=== PATIENT | female | born 1995 | race Caucasian/White ===

== ENCOUNTER 2017-06-19 10:59 | Emergency (ER) | payer SELFPAY ==
[~2017-06-19] VITALS: Ht 157.5 cm; Wt 65.9 kg
[~2017-06-19 10:59] MED LIST: NO HOME MEDICATIONS; POLYMYXIN B/TRIMETH OD; TUSS PO
[2017-06-19 11:13] VITALS: BP 130/71; TEMP 98.2
[2017-06-19 12:15] LABS: BASO % 0.4 % (0.0-2.0); EOS # 0.1 (0.0-0.7); EOS % 1.1 % (0-4.0); GRAN # 5.4 (1.4-6.5); GRAN % 64.9 % (42.2-75.2); HEMOGLOBIN 13.4 g/dl (12.5-16.0); LYMPH # 2.1 (1.2-3.4); LYMPH % 24.8 % (20.0-51.0); MEAN CELL VOLUME 93 fl (80.0-100.0); MEAN CORPUSCULAR HEMOGLOBIN 31 pg (27.0-31.0); MEAN CORPUSCULAR HGB CONC 34 g/dl (33.0-37.0); MEAN PLATELET VOLUME 11.1 fl (7.4-10.4); MONO # 0.7 (0.1-0.6); MONO % 8.6 % (1.7-9.3); PLATELET COUNT 195 K/mm3 (130-400); RED BLOOD COUNT 4.29 M/mm3 (4.10-5.30); REDCELL DISTRIBUTION WIDTH-CV 13.2 % (11.5-14.5)
[2017-06-19 12:31] LABS: ALANINE AMINOTRANSFERASE 27 U/L (9-52); ALBUMIN 4.3 gm/dL (3.5-5.0); ALKALINE PHOSPHATASE 86 U/L (50-136); ANION GAP 9 mmol/L (7-16); AST,SGOT 24 U/L (15-37); BILIRUBIN,TOTAL 0.7 mg/dL (0.0-1.0); BLOOD UREA NITROGEN 13 mg/dL (7-17); CALCIUM 9.2 mg/dL (8.4-10.2); CARBON DIOXIDE 23 mmol/L (22-30); CHLORIDE 107 mmol/L (98-107); CREATININE, serum 0.78 mg/dL (0.52-1.25); GLUCOSE 90 mg/dL (74-106); POTASSIUM 3.6 mmol/L (3.4-5.0); SODIUM 139 mmol/L (137-145); TOTAL PROTEIN 7.3 gm/dL (6.4-8.2)
[2017-06-19 12:37] LABS: C-REACTIVE PROTEIN < 0.5 mg/dL (0.0-0.9)
[2017-06-19 13:02] LABS: COLLECTION METHOD CLEAN CATCH
[2017-06-19 13:20] LABS: MUCOUS Present /lpf; PH 5 (5-8); URINE APPEARANCE Hazy; URINE BACTERIA Rare /hpf; URINE BILIRUBIN Negative (NEGATIVE); URINE BLOOD 3+ (NEGATIVE); URINE COLOR Yellow; URINE GLUCOSE Negative (NEGATIVE); URINE KETONE 1+ (NEGATIVE); URINE LEUKOCYTE ESTERASE Negative (NEGATIVE); URINE NITRATE Negative (NEGATIVE); URINE PROTEIN(semi-quant) 1+ (NEGATIVE); URINE RBC >50 /hpf; URINE UROBILINOGEN Negative (NEGATIVE)
[2017-06-19] MEDS ORDERED: CEFTIN500 MG PO (13:39)
[2017-06-19 13:46] VITALS: PULSE 74
== END 2017-06-19 13:47 | disposition home or self-care (01) ==
LOC: COL.ER 10:59
PROVIDERS: Family Medicine; Physician Assistant
DX: N39.0 Urinary tract infection, site not specified (principal); F17.200 Nicotine dependence, unspecified, uncomplicated
CPT/HCPCS: J1885; J2405; J7030

== ENCOUNTER 2018-04-04 18:28 | Emergency (ER) | payer SELFPAY ==
[~2018-04-04] VITALS: Ht 157.5 cm; Wt 65.9 kg
[~2018-04-04 18:28] MED LIST changes: +CEFTIN500 MG PO
[2018-04-04 18:37] VITALS: BP 151/72; TEMP 98.3
[2018-04-04] MEDS ORDERED: AMOXICILLIN 8751 TAB PO (20:11)
[2018-04-04 20:58] VITALS: PULSE 90
== END 2018-04-04 20:36 | disposition home or self-care (01) ==
LOC: COL.ER 18:28
DX: K04.7 Periapical abscess without sinus (principal); F17.210 Nicotine dependence, cigarettes, uncomplicated
CPT/HCPCS: J1885

== ENCOUNTER 2018-04-06 18:36 | Emergency (ER) | payer SELFPAY ==
[~2018-04-06] VITALS: Ht 157.5 cm; Wt 65.9 kg
[~2018-04-06 18:36] MED LIST changes: +AMOXICILLIN 8751 TAB PO
[2018-04-06 19:01] VITALS: TEMP 98.9
[2018-04-06 19:36] LABS: BASO % 0.3 % (0.0-2.0); EOS # 0.1 (0.0-0.7); EOS % 0.5 % (0-4.0); GRAN # 9.1 (1.4-6.5); GRAN % 73.8 % (42.2-75.2); HEMATOCRIT 39.7 % (37.0-47.0); HEMOGLOBIN 13.4 g/dl (12.5-16.0); LYMPH # 1.9 (1.2-3.4); LYMPH % 15.1 % (20.0-51.0); MEAN CELL VOLUME 93 fl (80.0-100.0); MEAN CORPUSCULAR HEMOGLOBIN 31 pg (27.0-31.0); MEAN CORPUSCULAR HGB CONC 34 g/dl (33.0-37.0); MEAN PLATELET VOLUME 10.7 fl (7.4-10.4); MONO # 1.2 (0.1-0.6); PLATELET COUNT 202 K/mm3 (130-400); RED BLOOD COUNT 4.28 M/mm3 (4.10-5.30); REDCELL DISTRIBUTION WIDTH-CV 13.6 % (11.5-14.5)
[2018-04-06 19:58] LABS: ALBUMIN 4.1 gm/dL (3.5-5.0); BILIRUBIN,TOTAL 0.8 mg/dL (0.0-1.0); CALCIUM 9.1 mg/dL (8.4-10.2); CREATININE, serum 0.65 mg/dL (0.52-1.25); POTASSIUM 3.8 mmol/L (3.4-5.0); TOTAL PROTEIN 7.3 gm/dL (6.4-8.2)
[2018-04-06 20:38] LABS: COLLECTION METHOD CLEAN CATCH
[2018-04-06 20:58] LABS: MUCOUS Present /lpf; PH 6 (5-8); URINE APPEARANCE Clear; URINE BACTERIA None Seen /hpf; URINE BILIRUBIN Negative (NEGATIVE); URINE BLOOD Negative (NEGATIVE); URINE COLOR Yellow; URINE GLUCOSE Negative (NEGATIVE); URINE KETONE 2+ (NEGATIVE); URINE LEUKOCYTE ESTERASE Negative (NEGATIVE); URINE NITRATE Negative (NEGATIVE); URINE PROTEIN(semi-quant) Negative (NEGATIVE); URINE RBC 0-2 /hpf; URINE UROBILINOGEN Negative (NEGATIVE)
[2018-04-06 21:10] VITALS: BP 126/84; PULSE 84
== END 2018-04-06 21:10 | disposition home or self-care (01) ==
LOC: COL.ER 18:36
PROVIDERS: Family Medicine
DX: K04.7 Periapical abscess without sinus (principal); R59.0 Localized enlarged lymph nodes
CPT/HCPCS: J0696; J2270; J7030; Q9967

== ENCOUNTER 2019-06-19 08:51 | Emergency (ER) | payer BC ==
[~2019-06-19] VITALS: Ht 157.5 cm; Wt 68.2 kg
[2019-06-19 08:54] VITALS: BP 125/72; TEMP 98.3
[2019-06-19 09:05] LABS: COLLECTION METHOD CLEAN CATCH
[2019-06-19 09:10] LABS: MUCOUS Present /lpf; PH 7 (5-8); URINE APPEARANCE Clear; URINE BACTERIA None Seen /hpf; URINE BILIRUBIN Negative (NEGATIVE); URINE BLOOD Negative (NEGATIVE); URINE COLOR Yellow; URINE GLUCOSE Negative (NEGATIVE); URINE KETONE Negative (NEGATIVE); URINE LEUKOCYTE ESTERASE Negative (NEGATIVE); URINE NITRATE Negative (NEGATIVE); URINE PROTEIN(semi-quant) Negative (NEGATIVE); URINE RBC 0-2 /hpf; URINE UROBILINOGEN Negative (NEGATIVE)
[2019-06-19 09:23] LABS: BASO # 0.1 (0.0-0.2); BASO % 0.8 % (0.0-2.0); EOS # 0.3 (0.0-0.7); EOS % 4.1 % (0-4.0); GRAN % 48.1 % (42.2-75.2); HEMATOCRIT 39.9 % (37.0-47.0); HEMOGLOBIN 13.4 g/dl (12.5-16.0); LYMPH # 2.3 (1.2-3.4); LYMPH % 36.6 % (20.0-51.0); MEAN CELL VOLUME 93 fl (80.0-100.0); MEAN CORPUSCULAR HEMOGLOBIN 31 pg (27.0-31.0); MEAN CORPUSCULAR HGB CONC 34 g/dl (33.0-37.0); MEAN PLATELET VOLUME 11.5 fl (7.4-10.4); MONO # 0.6 (0.1-0.6); MONO % 10.2 % (1.7-9.3); PLATELET COUNT 222 K/mm3 (130-400); RED BLOOD COUNT 4.28 M/mm3 (4.10-5.30); REDCELL DISTRIBUTION WIDTH-CV 13.2 % (11.5-14.5)
[2019-06-19 09:44] LABS: ALANINE AMINOTRANSFERASE 32 U/L (9-52); ALBUMIN 4.5 gm/dL (3.5-5.0); ALKALINE PHOSPHATASE 79 U/L (50-136); ANION GAP 10 mmol/L (7-16); AST,SGOT 24 U/L (15-37); BILIRUBIN,TOTAL 0.4 mg/dL (0.0-1.0); BLOOD UREA NITROGEN 12 mg/dL (7-17); CALCIUM 9.2 mg/dL (8.4-10.2); CARBON DIOXIDE 22 mmol/L (22-30); CHLORIDE 107 mmol/L (98-107); GLUCOSE 89 mg/dL (74-106); LIPASE 301 U/L (23-300); POTASSIUM 3.7 mmol/L (3.4-5.0); SODIUM 139 mmol/L (137-145); TOTAL PROTEIN 7.3 gm/dL (6.4-8.2)
[2019-06-19 09:48] LABS: C-REACTIVE PROTEIN < 0.5 mg/dL (0.0-0.9)
[2019-06-19] MEDS ORDERED: NORCO 325 MG-51 TAB PO (11:21)
[2019-06-19 11:57] VITALS: PULSE 61
== END 2019-06-19 11:57 | disposition home or self-care (01) ==
LOC: COL.ER 08:51
PROVIDERS: Physician Assistant
DX: R10.31 Right lower quadrant pain (principal); K59.8 Other specified functional intestinal disorders; D73.89 Other diseases of spleen; F17.210 Nicotine dependence, cigarettes, uncomplicated
CPT/HCPCS: J1885; J2405; J7030; Q9967

== ENCOUNTER 2019-06-25 18:07 | Emergency (ER) | payer BC ==
[~2019-06-25] VITALS: Ht 157.5 cm; Wt 68.2 kg
[~2019-06-25 18:07] MED LIST changes: +NORCO 325 MG-51 TAB PO
[2019-06-25 18:30] VITALS: BP 131/73; TEMP 99.1
[2019-06-25 19:19] LABS: BASO # 0.1 (0.0-0.2); BASO % 0.6 % (0.0-2.0); EOS # 0.3 (0.0-0.7); EOS % 3.7 % (0-4.0); GRAN # 5.2 (1.4-6.5); GRAN % 57.1 % (42.2-75.2); HEMATOCRIT 40.8 % (37.0-47.0); HEMOGLOBIN 13.8 g/dl (12.5-16.0); LYMPH # 2.4 (1.2-3.4); LYMPH % 26.7 % (20.0-51.0); MEAN CELL VOLUME 92 fl (80.0-100.0); MEAN CORPUSCULAR HEMOGLOBIN 31 pg (27.0-31.0); MEAN CORPUSCULAR HGB CONC 34 g/dl (33.0-37.0); MEAN PLATELET VOLUME 10.8 fl (7.4-10.4); MONO # 1.1 (0.1-0.6); MONO % 11.7 % (1.7-9.3); PLATELET COUNT 196 K/mm3 (130-400); RED BLOOD COUNT 4.44 M/mm3 (4.10-5.30); REDCELL DISTRIBUTION WIDTH-CV 13.2 % (11.5-14.5)
[2019-06-25] MEDS ORDERED: MOBIC15 MG PO (19:20)
[2019-06-25 19:37] LABS: ALBUMIN 4.5 gm/dL (3.5-5.0); BILIRUBIN,TOTAL 0.4 mg/dL (0.0-1.0); CALCIUM 9.1 mg/dL (8.4-10.2); CREATININE, serum 0.76 (0.52-1.25); POTASSIUM 3.8 mmol/L (3.4-5.0); TOTAL PROTEIN 7.4 gm/dL (6.4-8.2)
[2019-06-25] MEDS ORDERED: PHENERGAN 25 TA25 MG PO (21:06)
[2019-06-25 21:14] VITALS: PULSE 82
== END 2019-06-25 21:14 | disposition home or self-care (01) ==
LOC: COL.ER 18:07
PROVIDERS: Emergency Medicine
DX: K59.00 Constipation, unspecified (principal); F17.210 Nicotine dependence, cigarettes, uncomplicated

== ENCOUNTER 2020-12-16 06:25 | Outpatient (CLI) | payer MEDICAID ==
[~2020-12-16] VITALS: Ht 162.6 cm; Wt 80.0 kg
[~2020-12-16 06:25] MED LIST changes: +MOBIC15 MG PO; +PHENERGAN 25 TA25 MG PO
--- NOTE | 2020-12-16 06:35 | NUR ---
Patient ambulates to LR5 with mother, changed into gown, FHR/TOCO monitors on. Patient states she started cramping this morning and the cramps moved lower in abdomen. Denies any leaking of fluid/vaginal bleeding/regular contractions/decreased movement. Plan of care discussed. 0645: GREGORIO Gay RN-closed and high Dr. Pang called and updated, see physician notification 0702: Patient off monitor and given discharge instructions. Patient verbalizes understanding and questions answered. 0710: Patient off ambulates with mother.
[2020-12-16] MEDS ORDERED: PRENATAL TABLET PO (06:46)
[2020-12-16] MEDS ORDERED: TUMS ULTRA ST1000 MG PO (06:46)
[2020-12-16] MEDS ORDERED: FERROUSGLUC256MG (06:46)
[2020-12-16 06:54] VITALS: BP 115/66; PULSE 74; TEMP 98.1
== END 2020-12-16 07:10 | disposition home or self-care (01) ==
LOC: LDRO 06:25 → LDR 06:45 → LDRO 07:10
DX: O26.892 Other specified pregnancy related conditions, second trimester (principal); Z3A.23 23 weeks gestation of pregnancy
CPT/HCPCS: OP

== ENCOUNTER 2021-01-26 08:15 | Outpatient (CLI) | payer MEDICAID ==
[~2021-01-26] VITALS: Ht 157.5 cm; Wt 82.7 kg
[~2021-01-26 08:15] MED LIST changes: +FERROUSGLUC256MG; +PRENATAL TABLET PO; +TUMS ULTRA ST1000 MG PO
--- NOTE | 2021-01-26 08:25 | NUR ---
Pt arrived on unit ambulatory and with complaints of possible "leaking of fluid" this morning. Pt denies any contractions or bleeding at this time and reports normal movement. EFM and toco monitors started. Vital signs WNL. SVE done cervix closed and amnio-trace negative. Roles on the unit. Information reviewed. FHR tracing reviewed. Orders for labor assessment received.
[2021-01-26] MEDS ORDERED: ZOLOFT 50MG50 MG PO (08:36)
[2021-01-26] MEDS ORDERED: ASPIRIN 81M81 MG/TA2 PO (08:37)
--- NOTE | 2021-01-26 09:00 | NUR ---
Roles on the unit. FHR tracing reviewed. Orders for discharge home received.
[2021-01-26 09:10] VITALS: BP 117/81; PULSE 90
== END 2021-01-26 09:20 | disposition home or self-care (01) ==
LOC: LDRO 08:15 → LDR 09:01 → LDRO 09:20
DX: O26.893 Other specified pregnancy related conditions, third trimester (principal); Z3A.29 29 weeks gestation of pregnancy
CPT/HCPCS: OP

== ENCOUNTER 2021-03-25 18:58 | Inpatient (IN) | payer BC, MEDICAID ==
[~2021-03-25] VITALS: Ht 157.5 cm; Wt 95.9 kg
[~2021-03-25 18:58] MED LIST changes: +ASPIRIN 81M81 MG/TA2 PO; +ZOLOFT 50MG50 MG PO
--- NOTE | 2021-03-25 19:05 | NUR ---
To unit via wheelchair for labor assessment, accompanied by boyfriend. Pt reports "I had a big gush of fluid @ 5:30 and it keeps coming" Oriented to room, monitor, plan of care. Questions invited and answered. SVE +Amniotrace, /-3.
[2021-03-25 19:30] VITALS: BP 136/84; PULSE 84; TEMP 98
[2021-03-25 20:53] LABS: BASO % 0.4 % (0.0-2.0); EOS # 0.1 K/mm3 (0.0-0.7); EOS % 0.5 % (0-4.0); GRAN # 7.6 K/mm3 (1.4-6.5); GRAN % 71.2 % (42.2-75.2); HEMOGLOBIN 12.3 g/dl (12.5-16.0); LYMPH % 18.5 % (20.0-51.0); MEAN CELL VOLUME 91 fl (80.0-100.0); MEAN CORPUSCULAR HEMOGLOBIN 31 pg (27.0-31.0); MEAN CORPUSCULAR HGB CONC 34 g/dl (33.0-37.0); MEAN PLATELET VOLUME 12.9 fl (7.4-10.4); MONO % 9.1 % (1.7-9.3); PLATELET COUNT 218 K/mm3 (130-400); RED BLOOD COUNT 3.98 M/mm3 (4.10-5.30); REDCELL DISTRIBUTION WIDTH-CV 14.9 % (11.5-14.5)
[2021-03-25 20:54] LABS: HEMATOCRIT 36.3 % (37.0-47.0)
[2021-03-25 21:45] VITALS: BP 128/80; PULSE 86
[2021-03-25 21:55] LABS: TRICYCLIC ANTIDEPRESS URINE NEGATIVE
[2021-03-25 22:00] VITALS: BP 129/84; PULSE 75
[2021-03-25 23:30] VITALS: BP 135/86; PULSE 85
[2021-03-26] VITALS (47 sets, daily range): BP systolic 94–161; BP diastolic 52–93; PULSE 70–130; TEMP 97.8–99
--- NOTE | 2021-03-26 00:15 | NUR ---
Pt deep breathing with contractions, discussing epidural. Questions answered. States "I still need to think about it"
--- NOTE | 2021-03-26 00:44 | NUR ---
Requesting epidural. Anesthesia notified.
--- NOTE | 2021-03-26 01:00 | NUR ---
Zenaida ASSISTANT PROFESSOR OF CHEMISTRY into room for epidural placemnet, see anesthesia record. Pt moved to sit on edge of bed for placement.
--- NOTE | 2021-03-26 01:25 | NUR ---
pt to semifowlers
--- NOTE | 2021-03-26 02:44 | NUR ---
FHT's to 90's-100's with late onset. Pt to RL, FHT's to 60's-70's, FSE placed, to knee chest, O2 @ 10L/mask, Lr to bolus rate. Slow return to baseline 110-120. Continues in knee chest. onset to recovery 4 min.
--- NOTE | 2021-03-26 03:35 | NUR ---
Pt to supine for mckeon placement. FHT's with variable to 60's with turning and contraction. Mckeon placed. to R lateral, FHT's 100's-110's to Knee chest. Fht's to baseline 120's. @ 0341
--- NOTE | 2021-03-26 04:00 | NUR ---
Continues in knee-chest, toco adj. FHT's with decels to 90's with each contraction. 0410 to SF for SVE Complete caput @ -1, FSE off, new FSE placed. FHT's baseline 120's with decels to 90's 0422 to LL
--- NOTE | 2021-03-26 04:42 | NUR ---
Dr Jovel into room, pt to SF for SVE. Dr Jovel discusses plan of care with pt. FHT's 90-100's. 0450 To LL with gabriela, FHt's 120's with marked variable. Dr Jovel to L&D desk, watches tracing.
--- NOTE | 2021-03-26 04:56 | NUR ---
LL with peanut ball to push. 0506 FHT's to 90's-100's with pushing/contraction followed by acceleration 170's-180's with next contraction. 0510 FHT's to 90's-100's with ctx/pushing followed by acceleration to 170's-180's with marked variability. Dr Jovel continues @ L&D desk, aware of FHR tracing. 0515 To R side with peanut ball. FHT's to 100's
--- NOTE | 2021-03-26 05:45 | NUR ---
R wedge with peanut ball, pushing intermittently.
--- NOTE | 2021-03-26 07:45 | NUR ---
PT PUSHING WITH AT THIS TIME. DISCUSSES NEED TO DELIVER VIA CSECTION DUE TO POSITIONING AND FAILURE TO PROGRESS WITH PUSHING. EDUCATION PROVIDED. PT AGREEABLE AND STATES "I AM EXHAUSTED, AND READY TO GET THIS BABY OUT." WILL PREPARE PT AND TEAM FOR DELIVERY. 0801: HEART TONES DOWN INTO THE 60'S, UNABLE TO CORRECT WITH POSITIONING CHANGES. PT HYPOTENSIVE. EPHEDRINE IV ADMINISTERED PER CORBIN LERNER AND PT RUSHED TO EMERGENT CSECTION AT THIS TIME. 0816: DELIVERY OF VIABLE FEMALE AT THIS TIME PER , MOTHER AND INFANT IN STABLE CONDITION. CARE OF INFANT ASSUMED BY CORBIN CLEARY. 0905: PT TO PACU TO CONTINUE RECOVERY PER PROTOCOL. STABLE CONDITION AT THIS TIME, LOCHIA SCANT WITH NO CLOTTING. BP STABLE. FUNDUS FIRM AT UMBILICUS. WILL CONTINUE TO MONITOR.
--- NOTE | 2021-03-26 09:40 | NUR ---
REPORT TO JAYDEN Hernandez RN AT THIS TIME.
--- NOTE | 2021-03-26 10:46 | NUR ---
1000 URINE IN HARRIS BAG BLOODY BUT GETTING LIGHT IN THE TUBING.
[2021-03-27 00:30] VITALS: BP 118/65; PULSE 90; TEMP 98.1
[2021-03-27] MEDS ORDERED: MOTRIN 800800 MG/TAB PO (07:42)
[2021-03-27] MEDS ORDERED: PERCOCET 325 MG1 TA2 PO ×2 (07:43)
[2021-03-27 08:00] VITALS: BP 105/60; PULSE 91; TEMP 97.9
--- NOTE | 2021-03-27 09:16 | NUR ---
Initial visit; Parents thanked [employer] Prob[employer] Officer for offering congratulations and God's blessings for the of their daughter. Correctional Probation Officer thanked family for choosing our hospital.
--- NOTE | 2021-03-27 15:34 | NUR ---
1415: this RN took over pt. care
[2021-03-27 16:41] VITALS: BP 114/58; PULSE 95; TEMP 98.1
[2021-03-27 20:17] VITALS: BP 129/65; PULSE 101; TEMP 97.9
--- NOTE | 2021-03-27 22:47 | NUR ---
Report given to CORBIN Thomas. care relinquished of mom and infant at this time
[2021-03-28 08:00] VITALS: BP 121/72; PULSE 93; TEMP 97.1
[2021-03-28 16:40] VITALS: BP 133/64; PULSE 104; TEMP 97.7
[2021-03-28 20:20] VITALS: BP 112/63; PULSE 97; TEMP 97.9
[2021-03-29 08:15] VITALS: BP 125/81; PULSE 98; TEMP 97.2
[2021-03-29] MEDS ORDERED: ROXICODONE 55 MG/TAB PO (10:55)
== END 2021-03-29 12:30 | disposition home or self-care (01) | DRG 788 ==
LOC: LDRO 18:58 → LDR 19:34 → OB 19:34
PROVIDERS: Obstetrics & Gynecology; ADMIT Obstetrics & Gynecology
PROC: 10D00Z1 Extraction of Products of Conception, Low, Open Approach (ICD-10-PCS; principal; 2021-03-26)
DX: O99.824 Streptococcus B carrier state complicating childbirth (principal); O99.344 Other mental disorders complicating childbirth; F32.A Depression, unspecified; O75.89 Other specified complications of labor and delivery; M79.7 Fibromyalgia; M19.90 Unspecified osteoarthritis, unspecified site; O99.334 Smoking (tobacco) complicating childbirth; F17.210 Nicotine dependence, cigarettes, uncomplicated; O32.4XX0 Maternal care for high head at term, not applicable or unspecified; O76 Abnormality in fetal heart rate and rhythm complicating labor and delivery; Z3A.39 39 weeks gestation of pregnancy; Z37.0 Single live birth; Z23 Encounter for immunization
CPT/HCPCS: J0171; J0690; J1885; J2175; J2370; J2400; J2405; J2540; J2590; J2795; J7120